=== PATIENT | male | born 1975 | race Caucasian/White ===

== ENCOUNTER 2017-04-06 14:28 | Emergency (ER) | payer OTHER ==
[~2017-04-06] VITALS: Ht 193 cm; Wt 102.1 kg
[2017-04-06 14:46] VITALS: BP 148/90
--- NOTE | 2017-04-06 15:08 | NUR ---
Patient ambulated to bed 3. RN evaluating patient at bedside.
--- NOTE | 2017-04-06 15:09 | NUR ---
Karla castro in [facility] - 04/06/17 at 1510 by [email or web address] Patient being evaluated by DR SORIANO at [facility]
--- NOTE | 2017-04-06 15:09 | NUR ---
42/M S/P FALL 1 WEEK AGO W/C/O LEFT SIDED RIB PAIN. HX PANCREATITIS.
--- NOTE | 2017-04-06 15:10 | NUR ---
Dr. Sheth evaluating patient at bedside.
[2017-04-06] MEDS ORDERED: HYDROmorphone 1 MG/ML AMP IM ONE (15:15)
[2017-04-06 15:34] VITALS: BP 120/75
--- NOTE | 2017-04-06 15:48 | NUR ---
Patient being evaluated by DR SORIANO at bedside
== END 2017-04-06 15:48 | disposition home or self-care (01) ==
LOC: MED 14:28
DX: S22.42XA Multiple fractures of ribs, left side, initial encounter for closed fracture (principal); Z90.49 Acquired absence of other specified parts of digestive tract; W18.39XA Other fall on same level, initial encounter; Y93.89 Activity, other specified; Y92.89 Other specified places as the place of occurrence of the external cause; Y99.8 Other external cause status
CPT/HCPCS: 71100; 96372; 99284; J1170

== ENCOUNTER 2024-05-18 14:01 | Emergency (ER) | payer OTHER ==
[~2024-05-18] VITALS: Ht 190.5 cm; Wt 90.7 kg
[2024-05-18 14:19] VITALS: BP 124/71; PULSE 92; RESP 15; TEMP 98.3; O2SAT 97
[2024-05-18 14:39] LABS: BASOPHILS % (AUTO) 0.5 % (0.0-2.0); EOSINOPHILS % (AUTO) 0.2 % (0.0-4.0); HEMATOCRIT 40.8 % (36-52); LYMPHOCYTES # (AUTO) 1.1 K/uL (2.0-11.5); LYMPHOCYTES % (AUTO) 14.5 % (20.5-51.1); MEAN CORPUSCULAR HEMOGLOBIN 30 pg (27-31); MEAN CORPUSCULAR HGB CONC 34 g/dL (33-37); MEAN CORPUSCULAR VOLUME 88.4 fL (80-94); MONOCYTES # (AUTO) 0.5 K/uL (0.8-1.0); MONOCYTES % (AUTO) 5.9 % (1.7-9.3); NEUTROPHILS # (AUTO) 6.2 K/uL (1.8-7.7); NEUTROPHILS % (AUTO) 78.9 % (42.2-75.2); PLATELET COUNT (AUTO) 285 K/uL (140-450); RED BLOOD CELL COUNT(AUTO) 4.62 MIL/uL (4.20-6.10); RED CELL DISTRIBUTION WIDTH 12.9 % (11.6-13.7); WHITE BLOOD COUNT (AUTO) 7.9 K/uL (4.8-10.8)
[2024-05-18 14:53] LABS: ANION GAP 9.9 (8-16); CALCIUM 8.8 mg/dL (8.5-10.1); CREATININE 1.1 mg/dL (0.6-1.3); POTASSIUM 3.9 mmol/L (3.5-5.1)
== END 2024-05-18 14:48 | disposition left against medical advice (07) ==
LOC: MED 14:01
DX: R42 Dizziness and giddiness (principal); R20.0 Anesthesia of skin; Z53.21 Procedure and treatment not carried out due to patient leaving prior to being seen by health care provider
CPT/HCPCS: 36415; 80048; 82948; 84484; 85025; 93005